=== PATIENT | female | born 1975 | race Caucasian/White ===

== ENCOUNTER 2017-12-22 20:07 | Emergency (ER) | payer OTHER ==
[2017-12-22 20:30] VITALS: PULSE 96; O2SAT 100
--- NOTE | 2017-12-22 20:32 | ERPHSYRPT ---
- History of Present Illness Time Seen by Provider: 12/22/17 20:30 Source: patient Exam Limitations: no limitations Patient Subjective Stated Complaint: pt states she thinks she has a uti. states she has been having urinary frequency, burning when urinating, pelvic pain, and rt lower back pain Triage Nursing Assessment: pt alert and oriented, answers questions approp. pt ambulatory with steady gait noted. respirations nonlabored with lungs cta. urine orange,- pt states she took azo at home. Physician History: pt states she thinks she has a uti. states she has been having urinary frequency , burning when urinating, pelvic pain, and right lower back pain Timing/Duration: today Severity: moderate Associated Symptoms: chills, fever Allergies/Adverse Reactions: amoxicillin Allergy (Verified 12/22/17 20:31) Hives sulfamethoxazole [From Bactrim] Allergy (Verified 12/22/17 20:31) Hives trimethoprim [From Bactrim] Allergy (Verified 12/22/17 20:31) Hives Home Medications: Cetirizine HCl [Zyrtec] 10 mg PO HS 12/22/17 [History] Pantoprazole Sodium [Protonix] 40 mg PO DAILY 12/22/17 [History] Propranolol HCl 10 mg [Inderal 10 MG] 10 mg PO BID 12/22/17 [History] Hx Tetanus, Diphtheria Vaccination/Date Given: No Hx Influenza Vaccination/Date Given: No Hx Pneumococcal Vaccination/Date Given: No Immunizations Up to Date: No - Review of Systems Constitutional: Chills Eyes: No Symptoms Ears, Nose, & Throat: No Symptoms Respiratory: No Symptoms Cardiac: No Symptoms Abdominal/Gastrointestinal: No Symptoms Genitourinary Symptoms: Dysuria, Frequency, Flank Pain Musculoskeletal: No Symptoms - Past Medical History Pertinent Past Medical History: Yes Neurological History: Migraines GI Medical History: GERD - Past Surgical History Past Surgical History: Yes Gastrointestinal: Cholecystectomy Female Surgical History: Tubal Ligation, Other Other Surgical History: lt tube and ovary removed, uterine ablation - Social History Smoking Status: Never smoker Exposure to second hand smoke: No Drug Use: none Patient Lives Alone: No - Female History Hx Last Menstrual Period: ablation Hx Now: No - Nursing Vital Signs Nursing Vital Signs: Initial Vital Signs Pulse Rate 96 H 12/22/17 20:16 Respiratory Rate 16 12/22/17 20:16 O2 Sat by Pulse Oximetry 100 12/22/17 20:16 Pain Scale Pain Intensity 8 - Physical Exam General Appearance: no apparent distress Eye Exam: PERRL/EOMI Ears, Nose, Throat Exam: normal ENT inspection Neck Exam: normal inspection Respiratory Exam: normal breath sounds Cardiovascular Exam: regular rate/rhythm Gastrointestinal/Abdomen Exam: soft Neurologic Exam: alert, oriented x 3 Skin Exam: normal color SpO2 Interpretation: normal SpO2: 100 Oxygen Delivery: Room Air - Course Nursing assessment & vital signs reviewed: Yes Ordered Tests: Active Orders 24 hr Category Date Time Status BMP Stat Lab 12/22/17 20:19 Ordered CBC W DIFF Stat Lab 12/22/17 20:30 Completed UA W/RFX UR CULTURE Stat Lab 12/22/17 20:25 Completed Medication Summary Generic Name Dose Route Start Last Admin Trade Name Freq PRN Reason Stop Dose Admin Ciprofloxacin 500 mg 12/22/17 22:00 Cipro 500 Mg PO 12/22/17 22:01 ONCE ONE Lab/Rad Data: Laboratory Result Diagrams 12/22/17 20:30 Laboratory Results 12/22/17 12/22/17 Range/Units 20:30 20:25 WBC 11.4 H (4.0-10.5) K/mm3 RBC 4.93 (4.1-5.4) M/mm3 Hgb 15.2 (12.0-16.0) gm/dl Hct 45.0 (35-47) % MCV 91.3 (78-100) fl MCH 30.8 (26-32) pg MCHC 33.8 (32-36) g/dl RDW 12.3 (11.5-14.0) % Plt Count 389 (150-450) K/mm3 MPV 9.6 H (6-9.5) fl Gran % 67.8 H (36.0-66.0) % Eos # (Auto) 0.12 (0-0.5) Absolute Lymphs (auto) 2.48 (1.0-4.6) Absolute Monos (auto) 1.03 (0.0-1.3) Lymphocytes % 21.8 L (24.0-44.0) % Monocytes % 9.1 (0.0-12.0) % Eosinophils % 1.1 (0.00-5.0) % Basophils % 0.2 (0.0-0.4) % Absolute Granulocytes 7.72 H (1.4-6.9) Basophils # 0.02 (0-0.4) Urine Color BONILLA (YELLOW) Urine Appearance CLEAR (CLEAR) Urine pH 6.0 (5-6) Ur Specific [place] 1.003 (1.005-1.025) Urine Protein 30 (Negative) Urine Ketones NEGATIVE (NEGATIVE) Urine Blood LARGE (0-5) Harsh/ul Urine Nitrite POSITIVE (NEGATIVE) Urine Bilirubin NEGATIVE (NEGATIVE) Urine Urobilinogen 4 (0-1) mg/dL Ur Leukocyte Esterase SMALL (NEGATIVE) Urine WBC (Auto) 51-100 (0-5) /HPF Urine RBC (Auto) 0-2 (0-2) /HPF U Epithel Cells (Auto) RARE (FEW) /HPF Urine Bacteria (Auto) FEW (NEGATIVE) /HPF Urine Mucus (Auto) SLIGHT (NEGATIVE) /HPF Urine Culture Reflexed YES (NO) Urine Glucose NEGATIVE (NEGATIVE) mg/dL - Progress Progress: unchanged Counseled pt/family regarding: lab results, diagnosis - Departure Time of Disposition: 20:52 Departure Disposition: Home Clinical Impression: Pyelonephritis Condition: Stable Critical Care Time: No Referrals: DAYANA UREÑA MD [Primary Care Provider] - Instructions: Urinary Tract Infection, Adult (DC) Additional Instructions: URINARY TRACT INFECTION 1. You will need to drink plenty of fluids in order to keep your urinary system flushed. These fluids should mainly consist of water and juices. 2. Take medications as directed. You need to completely finish any antiobiotic prescription given. 3. Try to avoid coffee, tea, alcohol, and seasoned foods as they may cause bladder irritation. 4. If signs and symptoms persist after 3-4 days, you will need to follow up with your family physician. 5. Female Patients: A. Avoid intercourse for 3-4 days. B. Empty bladder before and after intercourse to reduce risk of re- infection. C. After emptying bladder, wipe from front to back to reduce the risk of re- infection. SYED VASQUEZ was seen on 12/22/17 n the Emergency Room. At that time you were treated for an emergent condition, during your visit Laboratory, Radiology and/or other procedures may have been ordered. It is very important that you follow-up with your Primary Care Physician DAYANA UREÑA within the next 24-48 hours to review your Emergency Room visit and the final results of testing that was ordered. Some test results such as Urine Cultures, Blood Cultures, and other cultures if ordered will not be finalized for 24-48 hours. If you do not have a Primary Care Provider please call the medical records department at [phone] to obtain a copy of your results or you may sign into our patient portal to obtain these results by visiting us @ [email or web address] and completing the following steps: 1. Click on the Patient Portal link 2. Click the Patient Self Enrollment Link to complete the enrollment form and entering your 3. Once the enrollment form is completed you will receive an email with a temporary ID and password at the email address you provided. 4. Next choose a user name and password. Your user name must be at least 4 characters long and your password must be at least 4 characters long. 5. Choose a security question from the list and provide your answer to the question. If you already have signed into the Health Portal you may access your Health Care Information 17/10 by the following steps: 1. Login to our website @ [email or web address] 2. Enter your original user name and password. FAQS The [facility] Health Portal is an online tool that contains your Lab Results, Radiology Reports, Visit History, Discharge Instructions and Health Summary Lab and Radiology Results will not be available for 72 hours on the portal. The Portal is a secure site, passwords are encryted and URLs are re-written so they cannot be copied and pasted. You and authorized family members are the only ones who can access your Portal. Also there is a timeout feature that protects your information if you leave the Portal page open. If you have technical difficulty please use the Contact Us link on the page this will allow you to submit any questions you have regarding the Portal or you may contact the Medical Record Department at [phone]. Prescriptions: Ciprofloxacin [Cipro 500 MG] 500 mg PO BID #20 tablet
[2017-12-22 20:36] LABS: BASOPHIL % 0.2 % (0.0-0.4); Basophil (Absolute #) 0.02 (0-0.4); Eosinophil % 1.1 % (0.00-5.0); Eosinophil (Absolute #) 0.12 (0-0.5); Granulocyte Absolute (ANC) 7.72 (1.4-6.9); Granulocytes % 67.8 % (36.0-66.0); Hemoglobin 15.2 gm/dl (12.0-16.0); Lymphocyte (Absolute #) 2.48 (1.0-4.6); Lymphocytes % 21.8 % (24.0-44.0); Mean Cell Volume 91.3 fl (78-100); Mean Corpuscular Hemoglobin 30.8 pg (26-32); Mean Corpuscular Hgb Concent. 33.8 g/dl (32-36); Mean Platelet Volume 9.6 fl (6-9.5); Monocyte (Absolute #) 1.03 (0.0-1.3); Monocytes % 9.1 % (0.0-12.0); Platelet Count 389 K/mm3 (150-450); Red Blood Count 4.93 M/mm3 (4.1-5.4); Red Cell Distribution Width 12.3 % (11.5-14.0); White Blood Count 11.4 K/mm3 (4.0-10.5)
[2017-12-22 20:47] LABS: Appearance CLEAR (CLEAR); Bilirubin NEGATIVE (NEGATIVE); Blood LARGE Ery/ul (0-5); Glucose NEGATIVE (NEGATIVE); Ketones NEGATIVE (NEGATIVE); Leukocyte Esterase SMALL (NEGATIVE); Nitrite POSITIVE (NEGATIVE); Protein,Urine Dip 30 (Negative); Specific Gravity 1.003 (1.005-1.025); Urobilinogen 4 mg/dL (0-1)
[2017-12-22] MEDS ORDERED: Cipro 500 MG ONE (20:53)
[2017-12-22 20:58] LABS: ANION GAP 14.1 MEQ/L (5-15); BLOOD UREA NITROGEN 10 mg/dL (7-17); CHLORIDE 103 mmol/L (98-107); Calcium 9.4 mg/dL (8.4-10.2); Carbon Dioxide 26 mmol/L (22-30); Creatinine 1 0.97 mg/dL (0.52-1.04); Glucose 105 mg/dL (74-106); Potassium 4.2 mmol/L (3.5-5.1); SODIUM 139 mmol/L (137-145)
[2017-12-22] MEDS ORDERED: Cipro 500 MG PO ONE (22:00)
== END 2017-12-22 20:57 | disposition home or self-care (01) ==
LOC: ED 20:07
DX: N12 Tubulo-interstitial nephritis, not specified as acute or chronic (principal); Z79.899 Other long term (current) drug therapy
CPT/HCPCS: 36415; 80048; 81001; 85025; 87077; 87086; 87186; 99283; A9270-GY

== ENCOUNTER 2022-05-23 14:17 | Observation (INO) | payer OTHER ==
[2022-05-23] MEDS ORDERED: GlucaGen 1 MG IV ONE (14:24)
[2022-05-23] MEDS ORDERED: GlucaGen 1 MG ONE (14:25)
[2022-05-23] MEDS ORDERED: Xylocaine-Mpf 2% 5 Ml Vial ONE (14:33)
[2022-05-23] MEDS ORDERED: DIPRIVAN 200 MG/20 ML IV ONE (14:33)
[2022-05-23] MEDS ORDERED: Quelicin Fliptop 200 MG/10 ML ONE (14:34)
[2022-05-23] MEDS ORDERED: Decadron 4 MG INJ ONE (14:35)
[2022-05-23] MEDS ORDERED: Zofran 4 MG/2 ML VIAL ONE ×2 (14:35→16:44)
[2022-05-23] MEDS ORDERED: SUBLIMAZE 100 MCG/2 ML ONE ×3 (14:36→15:04)
--- NOTE | 2022-05-23 14:38 | ERPHSYRPT ---
- History of Present Illness Historian: patient Exam Limitations: no limitations Patient Subjective Stated Complaint: Pt states "I was eating chicken and I got a piece of meat stuck in my throat." Triage Nursing Assessment: Pt presented alert and oriented X 3, skin pwd. Pt ambulates with an upright steady gait, pt spitting up saliva, occasional cough and gag. 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 Pt unable to swallow liquids or food. She denies h/o dysphagia/odynophagia/GERD. Timing/Duration: today Activities at Onset: other (Eating) Quality: other (Sensation of food in esophagus) Pain Radiation: no radiation Severity of Pain-Max: moderate Severity of Pain-Current: moderate Modifying Factors: Improves With: nothing Associated Symptoms: denies symptoms Previous symptoms: no prior history Allergies/Adverse Reactions: amoxicillin Allergy (Verified 12/22/17 20:31) Hives sulfamethoxazole [From Bactrim] Allergy (Verified 12/22/17 20:31) Hives trimethoprim [From Bactrim] Allergy (Verified 12/22/17 20:31) Hives egg Adverse Reaction (Intermediate, Verified 05/23/22 14:25) sinus infection Home Medications: Cetirizine HCl [Zyrtec] 10 mg PO HS 12/22/17 [History] Pantoprazole Sodium [Protonix] 40 mg PO DAILY 12/22/17 [History] Propranolol HCl 10 mg [Inderal 10 MG] 10 mg PO BID 12/22/17 [History] Losartan/Hydrochlorothiazide [Losartan-Hctz 100-25 mg Tab] 1 each PO DAILY 05/23/22 [History] Potassium Chloride Tab* [Klor Con] 20 meq PO DAILY 05/23/22 [History] Hx Tetanus, Diphtheria Vaccination/Date Given: No Hx Influenza Vaccination/Date Given: No Hx Pneumococcal Vaccination/Date Given: No Immunizations Up to Date: Yes Travel Risk - International Travel Have you traveled outside of the country in past 3 weeks: No - Coronavirus Screening Are you exhibiting any of the following symptoms?: No Close contact with a COVID-19 positive Pt in past 14-21 Days: No - Vaccine Status Have you recieved a Covid-19 vaccination: Yes [employer]: Moderna - Vaccination Dates Date of 2cond Vaccination (if applicable): 2020 - Review of Systems Constitutional: No Symptoms Eyes: No Symptoms Ears, Nose, & Throat: No Symptoms Respiratory: No Symptoms Cardiac: No Symptoms Abdominal/Gastrointestinal: No Symptoms, Dysphagia Genitourinary Symptoms: No Symptoms Musculoskeletal: No Symptoms Skin: No Symptoms Neurological: No Symptoms Psychological: No Symptoms Endocrine: No Symptoms Hematologic/Lymphatic: No Symptoms Immunological/Allergic: No Symptoms - Past Medical History Pertinent Past Medical History: Yes Neurological History: Migraines GI Medical History: GERD - Past Surgical History Past Surgical History: Yes Gastrointestinal: Cholecystectomy Female Surgical History: Tubal Ligation, Other Other Surgical History: lt tube and ovary removed, uterine ablation - Social History Smoking Status: Never smoker Exposure to second hand smoke: No Drug Use: none Patient Lives Alone: No - Female History Hx Last Menstrual Period: 05/23/2022 Hx Now: No - Nursing Vital Signs Nursing Vital Signs: Initial Vital Signs Temperature 97.2 F 05/23/22 14:18 Pulse Rate 110 H 05/23/22 14:18 Respiratory Rate 22 05/23/22 14:18 Blood Pressure 148/91 05/23/22 14:18 O2 Sat by Pulse Oximetry 96 05/23/22 14:18 Pain Scale Pain Intensity 5 Tachy/hypertensive - Physical Exam General Appearance: no apparent distress Eye Exam: PERRL/EOMI, eyes nml inspection Ears, Nose, Throat Exam: normal ENT inspection Neck Exam: normal inspection, non-tender, supple, full range of motion, No meningismus, No mass, No Brudzinski, No Kernig's Respiratory Exam: normal breath sounds, lungs clear, airway intact Cardiovascular Exam: tachycardia, capillary refill <2 sec, No murmur Gastrointestinal/Abdomen Exam: soft, normal bowel sounds, No tenderness Back Exam: normal inspection, normal range of motion Extremity Exam: normal inspection, normal range of motion Neurologic Exam: alert, oriented x 3, cooperative, cheese cutter II-XII nml as tested, normal mood/affect, nml cerebellar function, nml station & gait, sensation nml, No motor deficits, No sensory deficit Skin Exam: normal color, warm, dry Lymphatic Exam: adenopathy SpO2: 96 O2 Delivery: Room Air - Course Nursing assessment & vital signs reviewed: Yes Ordered Tests: Active Orders 24 hr Category Date Time Status HCG,QUALITATIVE URINE Stat Lab 05/23/22 14:45 Completed Medication Summary Discontinued Medications Generic Name Dose Route Start Last Admin Trade Name Janina PRN Reason Stop Dose Admin Dexamethasone Sodium Phosphate Confirm 05/23/22 14:35 Dexamethasone Sod Phosphate 4 Mg/Ml Ml Administered 05/23/22 14:36 Dose 8 mg .ROUTE .STK-MED ONE Fentanyl Citrate Confirm 05/23/22 14:36 Fentanyl Citrate 100 Mcg/2 Ml* Vial Administered 05/23/22 14:37 Dose 100 mcg .ROUTE .STK-MED ONE Fentanyl Citrate Confirm 05/23/22 15:01 Fentanyl Citrate 100 Mcg/2 Ml* Vial Administered 05/23/22 15:02 Dose 100 mcg .ROUTE .STK-MED ONE Fentanyl Citrate Confirm 05/23/22 15:04 Fentanyl Citrate 100 Mcg/2 Ml* Vial Administered 05/23/22 15:05 Dose 100 mcg .ROUTE .STK-MED ONE Glucagon 1 mg 05/23/22 14:24 05/23/22 14:26 Glucagon 1 Mg/Vial Vial IV 05/23/22 14:25 1 mg STAT ONE Administration Glucagon Confirm 05/23/22 14:25 Glucagon 1 Mg/Vial Vial Administered 05/23/22 14:26 Dose 1 mg .ROUTE .STK-MED ONE Lactated Ringer's Confirm 05/23/22 14:39 Lactated Ringers Administered 05/23/22 14:40 Dose 1,000 mls @ ud IV .STK-MED ONE Lidocaine HCl Confirm 05/23/22 14:33 Lidocaine - Mpf 2% 5 Ml Vial Administered 05/23/22 14:34 Dose 5 ml .ROUTE .STK-MED ONE Midazolam HCl Confirm 05/23/22 14:52 Midazolam Hcl 2 Mg/2 Ml Vial Administered 05/23/22 14:53 Dose 2 mg .ROUTE .STK-MED ONE Ondansetron HCl Confirm 05/23/22 14:35 Ondansetron Hcl 4 Mg/2 Ml Vial Administered 05/23/22 14:36 Dose 4 mg .ROUTE .STK-MED ONE Phenylephrine HCl Confirm 05/23/22 15:13 Phenylephrine 10 Mg/Ml Vial Administered 05/23/22 15:14 Dose 10 mg .ROUTE .STK-MED ONE Propofol Confirm 05/23/22 14:33 Propofol 10 Mg/Ml 20ml Vial Administered 05/23/22 14:34 Dose 200 mg IV .STK-MED ONE Succinylcholine Chloride Confirm 05/23/22 14:34 Succinylcholine Chloride 200mg/10 Ml Vial Administered 05/23/22 14:35 Dose 140 mg .ROUTE .STK-MED ONE Lab/Rad Data: Laboratory Results 05/23/22 Range/Units 14:45 Urine HCG, Qual NEGATIVE (Negative) - Progress Progress Note: 05/23/22 14:39 Nursing note and vital signs reviewed No food or housing insecurities noted Dr. Carr called immediately and consulted on pt in ER Dr. Carr to take pt to surgery for EGD 05/23/22 14:42 1mg IV Glucagon wo improvement Discussed with : Batsheva Counseled pt/family regarding: diagnosis, need for follow-up - Departure Departure Disposition: Release to OR/SDC Clinical Impression: Food impaction of esophagus Condition: Stable Critical Care Time: No [facility] - Follow up/PCP as directed
[2022-05-23] MEDS ORDERED: Lactated Ringers 1,000 ML IV ONE (14:39)
[2022-05-23] MEDS ORDERED: Versed 2 MG/2 ML Injection ONE (14:52)
[2022-05-23] MEDS ORDERED: PHENYLEPHRINE HCL ONE (15:13)
[2022-05-23] MEDS ORDERED: DUONEB 0.5-3 MG/3 ml Neb IH ONE (15:56)
--- NOTE | 2022-05-23 16:23 | XRAY ---
Indication: Aspiration. Status post Covid 19. Comparison: None Portable chest moderately underinflated and clear. Heart not enlarged. Bony thorax intact. Impression: Nonacute underinflated chest.
[2022-05-23] MEDS ORDERED: PIPERACILLIN/TAZOBACTAM 3.375 GM in Sodium Chloride 100ML MINI-BAG PLUS 100 ML IV ONE (16:56)
[2022-05-23] MEDS ORDERED: Zofran 4 MG/2 ML VIAL IV PRN (17:04)
[2022-05-23] MEDS ORDERED: TYLENOL 325 MG PO PRN (17:06)
[2022-05-23] MEDS ORDERED: MORPHINE SULFATE 4 MG INJ IV PRN (17:06)
--- NOTE | 2022-05-23 17:10 | PCM.HP ---
History of Present Illness - Chief Complaint Chief Complaint: aspiration History of Present Illness: is a 47 year old female who was taken to OR by surgery for impacted food bolus, she had vomiting and aspiration during the procedure so is being admitted for observation, she was not coughing nor did she complain of shortness of breath when I saw her in the recovery room, initial chest xray is read as negative. she has a history of hypertension but no chronic lung disease, stable on minimal oxygen support in recovery as well. - Review of Systems Constitutional: No Symptoms, No Fever Respiratory: No Cough Cardiac: No Chest Pain, No Edema, No Syncope Abdominal/Gastrointestinal: No Abdominal Pain, No Nausea, No Vomiting, No Diarrhea Skin: No Rash All Other Systems: Reviewed and Negative Medications & Allergies Home Medications: Home Medication List Cetirizine HCl [Zyrtec] 10 mg PO HS 12/22/17 [History Confirmed 05/23/22] Pantoprazole Sodium [Protonix] 40 mg PO DAILY 12/22/17 [History Confirmed 05/23/22] Propranolol HCl 10 mg [Inderal 10 MG] 10 mg PO BID 12/22/17 [History Confirmed 05/23/22] Losartan/Hydrochlorothiazide [Losartan-Hctz 100-25 mg Tab] 1 each PO DAILY 05/23/22 [History Confirmed 05/23/22] Potassium Chloride Tab* [Klor Con] 20 meq PO DAILY 05/23/22 [History Confirmed 05/23/22] Allergies/Adverse Reactions: Allergies Allergy/AdvReac Type Severity Reaction Status Date / Time amoxicillin Allergy Hives Verified 12/22/17 20:31 sulfamethoxazole Allergy Hives Verified 12/22/17 20:31 [From Bactrim] trimethoprim [From Bactrim] Allergy Hives Verified 12/22/17 20:31 egg AdvReac Intermediate sinus Verified 05/23/22 14:25 infection - Past Medical History Past Medical History: Yes Neurological History: Migraines GI Medical History: GERD - Female History Hx Last Menstrual Period: 05/23/2022 Are you now?: No - Past Surgical History Past Surgical History: Yes GI Surgical History: Cholecystectomy Female Surgical History: Tubal Ligation, Other Other Surgical History: lt tube and ovary removed, uterine ablation - Social History Smoking Status: Never smoker Exposure to second hand smoke: No Alcohol: None Drug Use: none - Physical Exam Vital Signs: Vital Signs - 24 hr Temp Pulse Resp BP Pulse Ox 05/23/22 16:26 91 H 22 95 05/23/22 15:19 96 05/23/22 14:29 97.2 F 110 H 22 148/91 96 05/23/22 14:18 97.2 F 110 H 22 148/91 96 General Appearance: no apparent distress Neurologic Exam: alert, oriented x 3 Respiratory Exam: normal breath sounds, lungs clear, No respiratory distress Cardiovascular Exam: regular rate/rhythm, normal heart sounds, normal peripheral pulses Gastrointestinal/Abdomen Exam: soft, normal bowel sounds, No tenderness, No mass Extremity Exam: normal inspection, normal range of motion, pelvis stable Skin Exam: normal color, warm, dry, No rash Results - Labs Lab/Micro Results: Lab Results-Last 24 Hours 05/23/22 Range/Units 14:45 Urine HCG, Qual NEGATIVE (Negative) - Radiology Impressions Radiology Exams & Impressions: Radiology Procedures Category Date Time Status CHEST 1 VIEW (PORTABLE) Routine Exams 05/23/22 16:15 Completed CHEST 1 VIEW (PORTABLE) Routine Exams 05/24/22 07:00 Ordered Assessment/Plan (1) Aspiration into respiratory tract Current Visit: Yes Status: Acute Assessment & Plan: plan to continue zosyn, nebs and repeat chest xray in the morning. note she was given zosyn in recovery without incident so it will be continued since tolerated in spite of documented amoxicillin allergy. Code(s): T17.908A - UNSP FB IN RESP TRACT, PART UNSP CAUSING OTH INJURY, INIT (2) Food impaction of esophagus Current Visit: Yes Status: Acute Assessment & Plan: impaction cleared during egd with surgery. Code(s): T18.128A - FOOD IN ESOPHAGUS CAUSING OTHER INJURY, INITIAL ENCOUNTER
[2022-05-23] MEDS ORDERED: MEDICATION ON HOLD MC SCH (17:30)
[2022-05-23] MEDS: Klor Con PO SCH (17:40)
[2022-05-23] MEDS: hydroDIURIL 25 MG PO SCH (18:15)
[2022-05-23] MEDS: Cozaar 50 MG PO SCH (18:15)
[2022-05-23] MEDS: Protonix 40MG Tablet PO SCH (18:16)
[2022-05-23] MEDS: DUONEB 0.5-3 MG/3 ml Neb IH SCH (18:27)
[2022-05-23] MEDS: Inderal PO SCH (21:02)
[2022-05-23] MEDS: CLARITIN 10 MG PO SCH (21:02)
[2022-05-23] MEDS ORDERED: PROPRANOLOL HCL 10 MG PO SCH (22:00)
[2022-05-23] MEDS ORDERED: NON-FORMULARY ITEM (Cetirizine Hcl [Zyrtec] 10 MG Tablet) PO SCH (22:00)
[2022-05-23] MEDS: PIPERACILLIN/TAZOBACTAM 3.375 GM in Sodium Chloride 100ML MINI-BAG PLUS 100 ML IV SCH (23:05)
[2022-05-23] MEDS: Sodium Chloride 0.9% W/ 20 mEq KCl/LITER 1,000 ML IV SCH (23:05)
[2022-05-24] MEDS: DUONEB 0.5-3 MG/3 ml Neb IH SCH ×4 (00:42→18:21)
[2022-05-24] MEDS: PIPERACILLIN/TAZOBACTAM 3.375 GM in Sodium Chloride 100ML MINI-BAG PLUS 100 ML IV SCH ×4 (05:08→23:35)
[2022-05-24 05:17] LABS: Absolute Neutrophil Ct (ANC) 5.24 x10^3/uL (1.4-6.9); BASOPHIL % 0.3 % (0.0-0.4); Basophil (Absolute #) 0.02 x10^3/uL (0-0.4); Eosinophil % 0.9 % (0.00-5.0); Eosinophil (Absolute #) 0.07 x10^3/uL (0-0.5); Hematocrit 37.4 % (35-47); Hemoglobin 12.3 g/dL (12.0-16.0); IMMATURE GRAN # 0.01 x10^3u/L (0.00-0.03); IMMATURE GRAN % 0.1 % (0.00-0.4); Lymphocyte (Absolute #) 1.99 x10^3/uL (1.0-4.6); Lymphocytes % 25.5 % (24.0-44.0); Mean Corpuscular Hemoglobin 30.6 pg (26-32); Mean Corpuscular Hgb Concent. 32.9 g/dL (32-36); Mean Platelet Volume 9.5 fL (7.5-11.0); Monocyte (Absolute #) 0.47 x10^3/uL (0.0-1.3); Neutrophil % 67.2 % (36.0-66.0); Platelet Count 334 x10^3/uL (150-450); Red Blood Count 4.02 x10^6/uL (4.1-5.4); Red Cell Distribution Width 12.5 % (11.5-14.0); White Blood Count 7.8 x10^3/uL (4.0-10.5)
[2022-05-24 06:08] LABS: ALBUMIN 3.3 g/dL (3.5-5.0); ALKALINE PHOSPHATASE 55 U/L (38-126); ANION GAP 10.7 MEQ/L (5-15); BLOOD UREA NITROGEN 12 mg/dL (7-17); CHLORIDE 105 mmol/L (98-107); Carbon Dioxide 25 mmol/L (22-30); Creatinine 1 0.87 mg/dL (0.52-1.04); EST GLOMERULAR FILTRATION RATE > 60.0 ML/MIN; Glucose 91 mg/dL (74-106); Potassium 3.3 mmol/L (3.5-5.1); SGOT/AST 29 U/L (14-36); SGPT/ALT 25 U/L (0-35); SODIUM 137 mmol/L (137-145)
--- NOTE | 2022-05-24 08:32 | XRAY ---
Indication: Aspiration. Comparison: One day earlier Portable chest better inflated and remains clear. Heart not enlarged. No new/acute findings.
--- NOTE | 2022-05-24 08:40 | PCM.NOTE ---
Date and Time: 05/24/22838 Subjective Assessment: patient does have some cough productive of blood tinged sputum, no other complaints. tolerating clears without problem, currently on room air Objective Exam General Appearance: no apparent distress, obese Respiratory Exam: rhonchi (rt lung base) Cardiovascular Exam: regular rate/rhythm, normal heart sounds Gastrointestinal/Abdomen Exam: soft, No tenderness, No mass Extremity Exam: normal inspection, normal range of motion OBJECTIVE DATA Vital Signs: Vital Signs - 24 hr Temp Pulse Resp BP Pulse Ox 05/24/22 07:06 102 H 16 97 05/24/22 06:51 97.7 F 73 16 108/58 92 L 05/24/22 05:13 101/63 94 L 05/24/22 04:00 97.7 F 92 H 16 87/48 05/24/22 00:42 91 H 16 96 05/24/22 00:00 98.2 F 91 H 16 94/54 93 L 05/23/22 20:35 85 116/72 95 05/23/22 19:55 93 H 16 107/60 98 05/23/22 19:32 94 L 05/23/22 19:00 73 18 98 05/23/22 18:55 83 110/71 96 05/23/22 18:30 75 16 99 05/23/22 18:25 84 16 106/53 96 05/23/22 17:54 97.6 F 68 15 122/63 99 05/23/22 17:25 97.7 F 75 15 107/76 96 05/23/22 17:07 97.7 F 77 14 121/69 96 05/23/22 17:06 97.7 F 77 14 121/69 96 05/23/22 16:58 97.7 F 77 14 121/69 96 05/23/22 16:26 91 H 22 95 05/23/22 15:19 96 05/23/22 14:29 97.2 F 110 H 22 148/91 96 05/23/22 14:18 97.2 F 110 H 22 148/91 96 Pain Assessment - Last Documented Pain Intensity 2 Pain Scale Used 0-10 Pain Scale Intake and Output: Intake & Output 05/21/22 05/22/22 05/23/22 05/24/22 11:59 11:59 11:59 11:59 Intake Total 2252 Output Total 1400 Balance 852 Weight 82.1 kg Lab Results: Lab Results-Last 24 Hours 05/23/22 05/24/22 05/24/22 Range/Units 14:45 04:00 05:24 WBC 7.8 (4.0-10.5) x10^3/uL RBC 4.02 L (4.1-5.4) x10^6/uL Hgb 12.3 (12.0-16.0) g/dL Hct 37.4 (35-47) % MCV 93.0 (78-100) fL MCH 30.6 (26-32) pg MCHC 32.9 (32-36) g/dL RDW 12.5 (11.5-14.0) % Plt Count 334 (150-450) x10^3/uL MPV 9.5 (7.5-11.0) fL Gran % 67.2 H (36.0-66.0) % Immature Gran % (Auto) 0.1 (0.00-0.4) % Nucleat RBC Rel Count 0.0 (0.00-0.1) % Eos # (Auto) 0.07 (0-0.5) x10^3/uL Immature Gran # (Auto) 0.01 (0.00-0.03) x10^3u/L Absolute Lymphs (auto) 1.99 (1.0-4.6) x10^3/uL Absolute Monos (auto) 0.47 (0.0-1.3) x10^3/uL Absolute Nucleated RBC 0.00 (0.00-0.01) x10^3u/L Lymphocytes % 25.5 (24.0-44.0) % Monocytes % 6.0 (0.0-12.0) % Eosinophils % 0.9 (0.00-5.0) % Basophils % 0.3 (0.0-0.4) % Absolute Granulocytes 5.24 (1.4-6.9) x10^3/uL Basophils # 0.02 (0-0.4) x10^3/uL Sodium 137 (137-145) mmol/L Potassium 3.3 L (3.5-5.1) mmol/L Chloride 105 (98-107) mmol/L Carbon Dioxide 25 (22-30) mmol/L Anion Gap 10.7 (5-15) MEQ/L BUN 12 (7-17) mg/dL Creatinine 0.87 (0.52-1.04) mg/dL Estimated GFR > 60.0 ML/MIN Glucose 91 (74-106) mg/dL Calcium 8.0 L (8.4-10.2) mg/dL Total Bilirubin 0.60 (0.2-1.3) mg/dL AST 29 (14-36) U/L ALT 25 (0-35) U/L Alkaline Phosphatase 55 (38-126) U/L Serum Total Protein 6.0 L (6.3-8.2) g/dL Albumin 3.3 L (3.5-5.0) g/dL Urine HCG, Qual NEGATIVE (Negative) Radiology Exams: Radiology Procedures Category Date Time Status CHEST 1 VIEW (PORTABLE) Routine Exams 05/23/22 16:15 Completed CHEST 1 VIEW (PORTABLE) Routine Exams 05/24/22 07:00 Completed Assessment/Plan (1) Aspiration into respiratory tract Current Visit: Yes Status: Acute Assessment & Plan: xray looks good but exam consistent with early aspiration, continue zosyn, advance to soft diet today and repeat chest xray tomorrow. possible d/c tomorrow Code(s): T17.908A - UNSP FB IN RESP TRACT, PART UNSP CAUSING OTH INJURY, INIT (2) Food impaction of esophagus Current Visit: Yes Status: Acute Code(s): T18.128A - FOOD IN ESOPHAGUS CAUSING OTHER INJURY, INITIAL ENCOUNTER
--- NOTE | 2022-05-24 09:52 | CONS ---
CONSULT DATE: 05/23/2022 HISTORY: The patient was eating chicken or chicken wings and felt like it got stuck and was unable to swallow, keep anything down, everything comes back up. She feels like it is still a retained food bolus. She denies any prior upper endoscopy. PAST MEDICAL HISTORY: She has allergies and hypertension. PAST SURGICAL HISTORY: Tonsillectomy. Cholecystectomy. Tubal ligation. Left tube and ovary removed. HOME MEDICATIONS: Propranolol, losartan/hydrochlorothiazide, Zyrtec. Protonix. ALLERGIES: AMOXICILLIN. BACTRIM. EGG. FAMILY HISTORY: Her mother had some esophageal swallowing problems with food boluses, it sounds like. SOCIAL HISTORY: No smoking or alcohol abuse. REVIEW OF SYSTEMS: Fourteen systems reviewed per admission assessment. PHYSICAL EXAMINATION: GENERAL: Slightly uncomfortable otherwise no acute distress. HEENT: Sclera nonicteric. She is wearing glasses. Head normocephalic and atraumatic. NECK: No JVD. CHEST: Equal excursion. CVS: Regular rhythm and pulse. ABDOMEN: Soft. No peritoneal signs. EXTREMITIES: No significant edema. NEURO: Alert, moving extremities grossly symmetrically. PSYCH: Appropriate mood and affect. IMPRESSION: Question retained food bolus. Eating chicken earlier and does not feel like it has gone down. Will consider EGD possible food bolus dislodging or removal. General risk of bleeding or infection. Risk of whatever she swallowed to avoid damage of esophagus or perforation or by removing it small risk of delayed perforation. Risk of aspiration. She understands if there is any mass in there may consider biopsy. Otherwise general risk of bleeding, infection, risk of perforation, risk of sedation but not limited to. Consent is obtained, will proceed.
[2022-05-24] MEDS ORDERED: NON-FORMULARY ITEM (Losartan/Hydrochlorothiazide [Losartan-Hctz 100-25 Mg Tab] 1 EACH Tabl PO SCH (10:00)
[2022-05-24] MEDS: Sodium Chloride 0.9% W/ 20 mEq KCl/LITER 1,000 ML IV SCH ×3 (10:26→21:18)
[2022-05-24] MEDS: hydroDIURIL 25 MG PO SCH (10:29)
[2022-05-24] MEDS: Inderal PO SCH ×2 (10:29→21:18)
[2022-05-24] MEDS: Klor Con PO SCH (10:30)
[2022-05-24] MEDS: Protonix 40MG Tablet PO SCH (10:30)
[2022-05-24] MEDS: Cozaar 50 MG PO SCH (10:31)
--- NOTE | 2022-05-24 11:32 | OP ---
SURGERY DATE/TIME: 05/23/2022 1452 PREOPERATIVE DIAGNOSIS: Dysphagia, suspected retained food bolus. POSTOPERATIVE DIAGNOSIS: Multiple particles of chicken/retained food bolus complex pieces. PROCEDURE: EGD with a combination of removal and dislodging from stomach multiple complex retained/food bolus particles. SURGEON: Dr. Terrell Desai. ANESTHESIA: General. ESTIMATED BLOOD LOSS: Minimal. INDICATIONS: As noted above. Risks and benefits explained in detail and not limited to and consent obtained. DESCRIPTION OF PROCEDURE AND FINDINGS: The patient is taken to the operating room. Anesthesia wanted to put her under general anesthetic rather than conscious sedation. Bite block positioned. At this time the scope is passed down. She had multiple food particles in her esophagus. The scope was able to be pushed down some of the bigger pieces there gently down into the stomach. She had a lot of food in her stomach. The scope is pulled back and a combination of removing some out the oropharynx and pushing the remainder down into the stomach this took quite some time given her complex particles was slowly and carefully accomplished. Trying to elevate the head of the bed up to allow gravity to keep her liquid away from the gastroesophageal junction area so that the particles would not be dragged back up. At this point there is no residual or any significant sized particles in the esophagus. The esophagus had a little bit of spasm but there was no evidence of any mass that warranted biopsy at this time. Given her acute inflammation it was felt that she did not warrant any dilatation at this point. I will see her back in the office in a week or two and consider if she continues to have some dysphagia down the road will do elective dilatation down the road if necessary. The scope had been passed into the third portion of the duodenum. Third, second and first portions of duodenum grossly unremarkable. Back in the stomach had some mild gastric erythema but no gross ulcers. The scope was carefully withdrawn. The patient tolerated the procedure as well as possible. There were no immediate complications. I will see her back in the office in a week or two.
[2022-05-24] MEDS ORDERED: TYLENOL 325 MG PO PRN (12:26)
[2022-05-24] MEDS ORDERED: CEPACOL SORE THROAT LOZENGE PO PRN (13:06)
[2022-05-24] MEDS: CLARITIN 10 MG PO SCH (21:18)
[2022-05-25] MEDS: DUONEB 0.5-3 MG/3 ml Neb IH SCH ×2 (01:01→07:43)
[2022-05-25 04:49] LABS: Hematocrit 36.3 % (35-47); Hemoglobin 11.9 g/dL (12.0-16.0); Mean Cell Volume 94.3 fL (78-100); Mean Corpuscular Hemoglobin 30.9 pg (26-32); Red Blood Count 3.85 x10^6/uL (4.1-5.4); White Blood Count 4.7 x10^3/uL (4.0-10.5)
[2022-05-25 04:50] LABS: Absolute Neutrophil Ct (ANC) 2.63 x10^3/uL (1.4-6.9); BASOPHIL % 0.4 % (0.0-0.4); Basophil (Absolute #) 0.02 x10^3/uL (0-0.4); Eosinophil % 2.8 % (0.00-5.0); Eosinophil (Absolute #) 0.13 x10^3/uL (0-0.5); IMMATURE GRAN # 0.01 x10^3u/L (0.00-0.03); IMMATURE GRAN % 0.2 % (0.00-0.4); Lymphocyte (Absolute #) 1.56 x10^3/uL (1.0-4.6); Lymphocytes % 33.5 % (24.0-44.0); Mean Corpuscular Hgb Concent. 32.8 g/dL (32-36); Mean Platelet Volume 9.3 fL (7.5-11.0); Monocyte (Absolute #) 0.31 x10^3/uL (0.0-1.3); Monocytes % 6.7 % (0.0-12.0); Neutrophil % 56.4 % (36.0-66.0); Platelet Count 307 x10^3/uL (150-450); Red Cell Distribution Width 12.7 % (11.5-14.0)
[2022-05-25 05:19] LABS: ANION GAP 11.6 MEQ/L (5-15); BLOOD UREA NITROGEN 5 mg/dL (7-17); CHLORIDE 109 mmol/L (98-107); Calcium 7.8 mg/dL (8.4-10.2); Carbon Dioxide 22 mmol/L (22-30); Creatinine 1 0.84 mg/dL (0.52-1.04); EST GLOMERULAR FILTRATION RATE > 60.0 ML/MIN; Glucose 89 mg/dL (74-106); Potassium 3.8 mmol/L (3.5-5.1); SODIUM 139 mmol/L (137-145)
[2022-05-25] MEDS: PIPERACILLIN/TAZOBACTAM 3.375 GM in Sodium Chloride 100ML MINI-BAG PLUS 100 ML IV SCH (05:41)
[2022-05-25 06:48] VITALS: BP 118/62
[2022-05-25] MEDS: Sodium Chloride 0.9% W/ 20 mEq KCl/LITER 1,000 ML IV SCH (07:06)
[2022-05-25 07:49] VITALS: PULSE 79; O2SAT 98
--- NOTE | 2022-05-25 08:47 | XRAY ---
Indication: Follow-up aspiration. Comparison: One day earlier Portable chest again demonstrates normal heart and lungs. No new/acute findings.
--- NOTE | 2022-05-25 09:19 | PCM.DS ---
Discharge Summary Date of Admission: 05/23/22 16:55 Admitting Physician: DAYANA UREÑA Primary Care Provider: ZEB SCHULER Allergies Allergies amoxicillin Allergy (Verified 12/22/17 20:31) Hives sulfamethoxazole [From Bactrim] Allergy (Verified 12/22/17 20:31) Hives trimethoprim [From Bactrim] Allergy (Verified 12/22/17 20:31) Hives egg Adverse Reaction (Intermediate, Verified 05/23/22 14:25) sinus infection Hospital Summary - Hospital Course Hospital Course: patient admitted with aspiration following egd for impacted food bolus, she is tolerating a soft diet. cough is improved and no hemoptysis. afebrile, wbc normal and chest xray remains clear. - Vitals & Intake/Output Vital Signs: Vital Signs Temperature 97.3 F 05/25/22 06:48 Pulse Rate 79 05/25/22 07:46 Respiratory Rate 16 05/25/22 07:46 Blood Pressure 118/62 05/25/22 06:48 O2 Sat by Pulse Oximetry 98 05/25/22 07:46 Intake & Output: Intake & Output 05/22/22 05/23/22 05/24/22 05/25/22 11:59 11:59 11:59 11:59 Intake Total 2732 4309 Output Total 1400 2600 Balance 1332 1709 Weight 82.1 kg - Lab Result Diagrams: 05/25/22 04:51 05/25/22 04:51 Lab Results-Last 24 Hrs: Lab Results-Last 24 Hours 05/25/22 05/25/22 Range/Units 04:51 04:51 WBC 4.7 (4.0-10.5) x10^3/uL RBC 3.85 L (4.1-5.4) x10^6/uL Hgb 11.9 L (12.0-16.0) g/dL Hct 36.3 (35-47) % MCV 94.3 (78-100) fL MCH 30.9 (26-32) pg MCHC 32.8 (32-36) g/dL RDW 12.7 (11.5-14.0) % Plt Count 307 (150-450) x10^3/uL MPV 9.3 (7.5-11.0) fL Gran % 56.4 (36.0-66.0) % Immature Gran % (Auto) 0.2 (0.00-0.4) % Nucleat RBC Rel Count 0.0 (0.00-0.1) % Eos # (Auto) 0.13 (0-0.5) x10^3/uL Immature Gran # (Auto) 0.01 (0.00-0.03) x10^3u/L Absolute Lymphs (auto) 1.56 (1.0-4.6) x10^3/uL Absolute Monos (auto) 0.31 (0.0-1.3) x10^3/uL Absolute Nucleated RBC 0.00 (0.00-0.01) x10^3u/L Lymphocytes % 33.5 (24.0-44.0) % Monocytes % 6.7 (0.0-12.0) % Eosinophils % 2.8 (0.00-5.0) % Basophils % 0.4 (0.0-0.4) % Absolute Granulocytes 2.63 (1.4-6.9) x10^3/uL Basophils # 0.02 (0-0.4) x10^3/uL Sodium 139 (137-145) mmol/L Potassium 3.8 (3.5-5.1) mmol/L Chloride 109 H (98-107) mmol/L Carbon Dioxide 22 (22-30) mmol/L Anion Gap 11.6 (5-15) MEQ/L BUN 5 L (7-17) mg/dL Creatinine 0.84 (0.52-1.04) mg/dL Estimated GFR > 60.0 ML/MIN Glucose 89 (74-106) mg/dL Calcium 7.8 L (8.4-10.2) mg/dL - Radiology Exams Ordered Rad Exams-Entire Visit: Radiology Procedures Category Date Time Status CHEST 1 VIEW (PORTABLE) Routine Exams 05/23/22 16:15 Completed CHEST 1 VIEW (PORTABLE) Routine Exams 05/24/22 07:00 Completed CHEST 1 VIEW (PORTABLE) Routine Exams 05/25/22 07:00 Completed - Procedures and Test Procedures and Tests throughout Hospitalization: Therapy Orders & Screens 05/23/22 18:30 Oxygen Nasal Cannula 2 lpm Comment: Diagnosis: aspiration Discharge Exam General Appearance: no apparent distress Neurologic Exam: alert, oriented x 3 Respiratory Exam: normal breath sounds, lungs clear, No respiratory distress Cardiovascular Exam: regular rate/rhythm, normal heart sounds Gastrointestinal/Abdomen Exam: soft, No tenderness, No mass Extremity Exam: normal inspection, normal range of motion Skin Exam: normal color, warm, dry Final Diagnosis/Problem List - Final Discharge Diagnosis/Problem (1) Aspiration into respiratory tract Current Visit: Yes Status: Acute Assessment & Plan: home on po clindamycin, advised if any fever, worsening cough, dyspnea etc needs to call Code(s): T17.908A - UNSP FB IN RESP TRACT, PART UNSP CAUSING OTH INJURY, INIT (2) Food impaction of esophagus Current Visit: Yes Status: Acute Assessment & Plan: soft diet, f/u with surgery Code(s): T18.128A - FOOD IN ESOPHAGUS CAUSING OTHER INJURY, INITIAL ENCOUNTER - Discharge Disposition: Home, Self-Care Condition: Stable Prescriptions: New clindamycin HCL [Clindamycin HCl] 300 mg PO TID #15 cap Albuterol Sulfate [Albuterol Sulfate Hfa] 2 puffs IH Q4-6HPRN PRN #1 units PRN Reason: Cough Continue Propranolol HCl 10 mg [Inderal 10 MG] 20 mg PO BID Pantoprazole Sodium [Protonix] 40 mg PO DAILY Cetirizine HCl [Zyrtec] 10 mg PO HS Losartan/Hydrochlorothiazide [Losartan-Hctz 100-25 mg Tab] 1 each PO DAILY Potassium Chloride Tab* [Klor Con] 20 meq PO DAILY Follow up with: PAULA MADERA [COURTESY STAFF] - ZEB SCHULER NP [Primary Care Provider] -
== END 2022-05-25 10:10 | disposition home or self-care (01) ==
LOC: ED 14:17 → MED SURG 16:55
PROVIDERS: ADMIT Family Medicine; ATTEND Family Medicine
DX: T17.908A Unspecified foreign body in respiratory tract, part unspecified causing other injury, initial encounter (principal); T18.128A Food in esophagus causing other injury, initial encounter; I10 Essential (primary) hypertension; R11.10 Vomiting, unspecified; Z79.899 Other long term (current) drug therapy; Z20.828 Contact with and (suspected) exposure to other viral communicable diseases
CPT/HCPCS: 36415; 71045; 80048; 80053; 81025; 85025; 94640; 94760; 96374; 99140; 99282; G0378; J0330; J1100; J1610; J2250; J2370; J2405; J2704; J3010; A9270-GY

== ENCOUNTER 2024-05-23 13:35 | Emergency (ER) | payer OTHER ==
[2024-05-23 13:54] VITALS: TEMP 96.3
--- NOTE | 2024-05-23 14:13 | ERPHSYRPT ---
- History of Present Illness Time Seen by Provider: 05/23/24 13:36 Historian: patient Exam Limitations: no limitations Patient Subjective Stated Complaint: Chest pain Triage Nursing Assessment: Patient ambulated back to ED and transferred self to bed. Patient A+O X 3. Patient's skin pink, warm and dry. Patient complains of chest pain on and off this past week, but today her pain is more consistant intermittent sharp pain to left chest /10. Patient does complains of nausea. Lungs noted to be clear a/p miguel. Patient states she has been having increased PVCS. Physician History: 49-year-old female with history of hypertension, hyperlipidemia presented to the ER with intermittent substernal/left-sided chest pain for almost 1 week with progressive worsening lately. Patient reports mild intensity dull aching pain, nonradiating, no significant aggravating or relieving factors. Denies associated palpitations or shortness of breath. No history of coronary artery disease. No cardiac workup done in the recent past Aspirin Treatment Today: no aspirin today Allergies/Adverse Reactions: amoxicillin Allergy (Verified 05/23/24 13:45) Hives sulfamethoxazole [From Bactrim] Allergy (Verified 05/23/24 13:45) Hives trimethoprim [From Bactrim] Allergy (Verified 05/23/24 13:45) Hives egg Adverse Reaction (Intermediate, Verified 05/23/24 13:45) sinus infection Home Medications: Cetirizine HCl [Zyrtec] 10 mg PO HS 12/22/17 [History] Pantoprazole Sodium [Protonix] 40 mg PO DAILY 12/22/17 [History] Propranolol HCl 10 mg [Inderal 10 MG] 20 mg PO BID 12/22/17 [History] Losartan/Hydrochlorothiazide [Losartan-Hctz 100-25 mg Tab] 1 each PO DAILY 05/23/22 [History] Potassium Chloride Tab* [Klor Con] 20 meq PO DAILY 05/23/22 [History] Rosuvastatin Calcium 1 tab PO HS 05/23/24 [History] Hx Tetanus, Diphtheria Vaccination/Date Given: No Hx Influenza Vaccination/Date Given: Yes Hx Pneumococcal Vaccination/Date Given: No Immunizations Up to Date: Yes Travel Risk - International Travel Have you traveled outside of the country in past 3 weeks: No - Emerging Infectious Disease Are you exhibiting symptoms associated with any current EIDs: No - Review of Systems Constitutional: No Symptoms Ears, Nose, & Throat: No Symptoms Respiratory: No Symptoms Cardiac: Chest Pain Abdominal/Gastrointestinal: No Symptoms Genitourinary Symptoms: No Symptoms Musculoskeletal: No Symptoms Skin: No Symptoms Neurological: No Symptoms Endocrine: No Symptoms Hematologic/Lymphatic: No Symptoms - Past Medical History Pertinent Past Medical History: Yes Neurological History: Migraines ENT History: No Pertinent History Cardiac History: High Cholesterol, Hypertension Respiratory History: No Pertinent History Endocrine Medical History: No Pertinent History Musculoskeletal History: No Pertinent History GI Medical History: GERD History: No Pertinent History Psycho-Social History: No Pertinent History Female Reproductive Disorders: No Pertinent History - Past Surgical History Past Surgical History: Yes Neuro Surgical History: No Pertinent History Cardiac: No Pertinent History Respiratory: No Pertinent History Gastrointestinal: Cholecystectomy Genitourinary: No Pertinent History Musculoskeletal: No Pertinent History Female Surgical History: Tubal Ligation, Other Other Surgical History: lt tube and ovary removed, uterine ablation - Female History Hx Last Menstrual Period: ablation Hx Now: No - Social History Smoking Status: Never smoker Exposure to second hand smoke: No Drug Use: none - Social Determinants of Health Will the patient participate in the screening: Yes Do you worry about a steady place to live?: No Do you have any problems with any of the following?: No known problems In the past 12 months,have you had to go without utilities?: No Transportation Issues: No Has anyone in your support network made you feel unsafe?: No Have you or anyone in your house had to go w/o enough food: No - Nursing Vital Signs Nursing Vital Signs: Initial Vital Signs Pulse Rate 58 L 05/23/24 13:40 Respiratory Rate 15 05/23/24 13:40 Blood Pressure 159/81 05/23/24 13:40 O2 Sat by Pulse Oximetry 98 05/23/24 13:40 Pain Scale Pain Intensity 0 - Physical Exam General Appearance: no apparent distress, alert Eye Exam: PERRL/EOMI Ears, Nose, Throat Exam: normal ENT inspection Neck Exam: normal inspection, full range of motion Respiratory Exam: normal breath sounds, lungs clear Cardiovascular Exam: regular rate/rhythm, normal heart sounds Gastrointestinal/Abdomen Exam: soft, normal bowel sounds, No tenderness Back Exam: normal inspection, normal range of motion Extremity Exam: normal inspection, normal range of motion Neurologic Exam: alert, oriented x 3, cooperative Skin Exam: normal color SpO2 Interpretation: normal SpO2: 100 O2 Delivery: Room Air - Course EKG Interpreted by Me: RATE (60), Sinus Rhythm, NORMAL AXIS, NORMAL INTERVALS, Other (Unspecific T wave change) Ordered Tests: Active Orders 24 hr Category Date Time Status Motor Mechanic STAT Care 05/23/24 14:09 Completed EKG-ER Only STAT Care 05/23/24 14:08 Completed IV Insertion STAT Care 05/23/24 14:08 Completed CHEST 1 VIEW (PORTABLE) Stat Exams 05/23/24 14:40 Completed CBC W DIFF Stat Lab 05/23/24 Completed CMP Stat Lab 05/23/24 Completed D-DIMER QUANTITATIVE Stat Lab 05/23/24 Completed NT PRO BNPII Stat Lab 05/23/24 Completed TROPONIN Q4H Lab 05/23/24 Completed TROPONIN Q4H Lab 05/23/24 16:50 Completed Medication Summary Discontinued Medications Generic Name Dose Route Start Last Admin Trade Name Freq PRN Reason Stop Dose Admin Aspirin 324 mg 05/23/24 14:08 05/23/24 14:18 Aspirin 81 Mg Tab.Chew PO 05/23/24 14:09 324 mg STAT ONE Administration Aspirin Confirm 05/23/24 14:18 Aspirin 81 Mg Tab.Chew Administered 05/23/24 14:19 Dose 324 mg .ROUTE .STK-MED ONE Doxycycline Hyclate 100 mg 05/23/24 17:39 05/23/24 17:50 Doxycycline Hyclate 100 Mg Tablet PO 05/23/24 17:40 100 mg STAT ONE Administration Doxycycline Hyclate Confirm 05/23/24 17:50 Doxycycline Hyclate 100 Mg Tablet Administered 05/23/24 17:51 Dose 100 mg .ROUTE .STK-MED ONE Lab/Rad Data: Laboratory Result Diagrams 05/23/24 Unknown 05/23/24 Unknown Laboratory Results 05/23/24 05/23/24 05/23/24 Range/Units Unknown Unknown Unknown WBC (3.98-10.04) x10^3/uL RBC (3.93-5.22) x10^6/uL Hgb (11.2-15.7) g/dL Hct (34.1-44.9) % MCV (79.4-94.8) fL MCH (25.6-32.2) pg MCHC (32.2-35.5) g/dL RDW (11.7-14.4) % Plt Count (182-369) x10^3/uL MPV (9.4-12.3) fL Gran % (34.0-71.1) % Immature Gran % (Auto) (0.001-0.429) % Nucleat RBC Rel Count (0.00-0.2) % Eos # (Auto) (0.04-0.36) x10^3/uL Immature Gran # (Auto) (0.001-0.031) x10^3u/L Absolute Lymphs (auto) (1.18-3.74) x10^3/uL Absolute Monos (auto) (0.24-0.86) x10^3/uL Absolute Nucleated RBC (0.00-0.012) x10^3u/L Lymphocytes % (19.3-51.7) % Monocytes % (4.7-12.5) % Eosinophils % (0.7-5.8) % Basophils % (0.1-1.2) % Absolute Granulocytes (1.56-6.13) x10^3/uL Basophils # (0.01-0.08) x10^3/uL D-Dimer < 0.19 (0.0-0.50) mg/L Sodium 141 (135-145) mmol/L Potassium 3.6 (3.5-5.1) mmol/L Chloride 101 (98-107) mmol/L Carbon Dioxide 28 (22-30) mmol/L Anion Gap 16.3 H (5-15) MEQ/L BUN 14 (7-17) mg/dL Creatinine 0.81 (0.52-1.04) mg/dL Estimated GFR 90.1 ML/MIN Glucose 95 (74-106) mg/dL Calcium 10.2 (8.4-10.2) mg/dL Total Bilirubin 0.70 (0.2-1.3) mg/dL AST 34 (14-36) U/L ALT 34 (0-35) U/L Alkaline Phosphatase 60 (38-126) U/L Troponin I < 0.012 (0.000-0.033) ng/mL NT-Pro-B Natriuret Pep 148 (<300) pg/mL Serum Total Protein 7.7 (6.3-8.2) g/dL Albumin 5.0 (3.5-5.0) g/dL 05/23/24 05/23/24 Range/Units Unknown 16:50 WBC 8.2 (3.98-10.04) x10^3/uL RBC 4.83 (3.93-5.22) x10^6/uL Hgb 15.0 (11.2-15.7) g/dL Hct 44.7 (34.1-44.9) % MCV 92.5 (79.4-94.8) fL MCH 31.1 (25.6-32.2) pg MCHC 33.6 (32.2-35.5) g/dL RDW 12.1 (11.7-14.4) % Plt Count 413 H (182-369) x10^3/uL MPV 9.7 (9.4-12.3) fL Gran % 62.7 (34.0-71.1) % Immature Gran % (Auto) 0.2 (0.001-0.429) % Nucleat RBC Rel Count 0.0 (0.00-0.2) % Eos # (Auto) 0.11 (0.04-0.36) x10^3/uL Immature Gran # (Auto) 0.02 (0.001-0.031) x10^3u/L Absolute Lymphs (auto) 2.23 (1.18-3.74) x10^3/uL Absolute Monos (auto) 0.66 (0.24-0.86) x10^3/uL Absolute Nucleated RBC 0.00 (0.00-0.012) x10^3u/L Lymphocytes % 27.3 (19.3-51.7) % Monocytes % 8.1 (4.7-12.5) % Eosinophils % 1.3 (0.7-5.8) % Basophils % 0.4 (0.1-1.2) % Absolute Granulocytes 5.13 (1.56-6.13) x10^3/uL Basophils # 0.03 (0.01-0.08) x10^3/uL D-Dimer (0.0-0.50) mg/L Sodium (135-145) mmol/L Potassium (3.5-5.1) mmol/L Chloride (98-107) mmol/L Carbon Dioxide (22-30) mmol/L Anion Gap (5-15) MEQ/L BUN (7-17) mg/dL Creatinine (0.52-1.04) mg/dL Estimated GFR ML/MIN Glucose (74-106) mg/dL Calcium (8.4-10.2) mg/dL Total Bilirubin (0.2-1.3) mg/dL AST (14-36) U/L ALT (0-35) U/L Alkaline Phosphatase (38-126) U/L Troponin I < 0.012 (0.000-0.033) ng/mL NT-Pro-B Natriuret Pep (<300) pg/mL Serum Total Protein (6.3-8.2) g/dL Albumin (3.5-5.0) g/dL - Progress Progress: improved, re-examined Air Movement: good Progress Note: 05/23/24 17:52 49-year-old is evaluated in the ER for substernal/left-sided chest discomfort off-and-on for 1 week. EKG is sinus rhythm with no acute ischemic changes. She has negative troponins x 2. Normal white count, unremarkable chemistries and negative D-dimers. Chest x-ray showed questionable infiltrate left side in the area where patient is complaining of pain. I will start her on doxycycline and will give her inhaler to go home and outpatient follow-up recommended. Patient is low heart score and with 2 negative troponin and pain going on for quite some time I do not think patient needs to be observed in the hospital, patient is established with cardiology Dr. Noel which she is advised to continue and call for appointment early next week. Discussed signs symptoms of worsening needing return to ER which she seems understanding. Stable for discharge. Blood Culture(s) Obtained: No Antibiotics given: No Counseled pt/family regarding: lab results, diagnosis, need for follow-up, rad results Medical Desision Making - Independent Historian Additional History obtained from: Spouse - Diagnostic Testing Diagnostic test were ordered, analyzed, and reviewed by me: Yes Radiological Interpretation: Interpreted by me, Reviewed by me, Teleradiologist Report - Risk of complications The pt has a mod risk of morbidity or mortality based on: Need for prescription drug management - Departure Departure Disposition: Home Clinical Impression: Atypical chest pain, Pneumonia Condition: Stable Critical Care Time: No Referrals: ZEB SCHULER, IVY [Primary Care Provider] - Follow up with PCP 1 day MAGO NOEL [CONSULTING PHYSICIAN] - Follow up/PCP as directed (Call for appointment for reevaluation early next week) Instructions: Pneumonia, Adult (DC), Angina (DC) Additional Instructions: Take Tylenol as needed. Follow-up with primary care for reevaluation. Return to ER for any worsening. Prescriptions: Doxycycline Hyclate 100 mg [Vibramycin 100 MG] 100 mg PO BID #20 tab
[2024-05-23 14:16] LABS: Absolute Neutrophil Ct (ANC) 5.13 x10^3/uL (1.56-6.13); BASOPHIL % 0.4 % (0.1-1.2); Basophil (Absolute #) 0.03 x10^3/uL (0.01-0.08); Eosinophil % 1.3 % (0.7-5.8); Eosinophil (Absolute #) 0.11 x10^3/uL (0.04-0.36); Hematocrit 44.7 % (34.1-44.9); IMMATURE GRAN # 0.02 x10^3u/L (0.001-0.031); IMMATURE GRAN % 0.2 % (0.001-0.429); Lymphocyte (Absolute #) 2.23 x10^3/uL (1.18-3.74); Lymphocytes % 27.3 % (19.3-51.7); Mean Cell Volume 92.5 fL (79.4-94.8); Mean Corpuscular Hemoglobin 31.1 pg (25.6-32.2); Mean Corpuscular Hgb Concent. 33.6 g/dL (32.2-35.5); Mean Platelet Volume 9.7 fL (9.4-12.3); Monocyte (Absolute #) 0.66 x10^3/uL (0.24-0.86); Monocytes % 8.1 % (4.7-12.5); Neutrophil % 62.7 % (34.0-71.1); Platelet Count 413 x10^3/uL (182-369); Red Blood Count 4.83 x10^6/uL (3.93-5.22); Red Cell Distribution Width 12.1 % (11.7-14.4); White Blood Count 8.2 x10^3/uL (3.98-10.04)
[2024-05-23] MEDS: BABY ASPIRIN 81 MG CHEW PO ONE (14:18)
[2024-05-23] MEDS ORDERED: BABY ASPIRIN 81 MG CHEW ONE (14:18)
[2024-05-23 14:22] LABS: ANION GAP 16.3 MEQ/L (5-15); BILIRUBIN,TOTAL 0.7 mg/dL (0.2-1.3); Calcium 10.2 mg/dL (8.4-10.2); Creatinine 1 0.81 mg/dL (0.52-1.04); EST GLOMERULAR FILTRATION RATE 90.1 ML/MIN; Potassium 3.6 mmol/L (3.5-5.1); Total Protein 7.7 g/dL (6.3-8.2)
--- NOTE | 2024-05-23 15:50 | XRAY ---
CLINICAL HISTORY: cp COMPARISON: None. TECHNIQUE: X ray of the chest, AP view. FINDINGS: Radiographic examination of the chest demonstrates some opacities in the left lower zone which can be due to overlapping soft tissues but the possibility of some subtle infiltrates can not be excluded. Normal configuration of the mediastinum. The emily are normal in size and position. The cardiac size is normal. The bony thorax is unremarkable. The right costophrenic and cardiophrenic angles are clear. IMPRESSION: Some opacities in the left lower zone which can be due to overlapping soft tissues but the possibility of some subtle alveolar infiltrates can not be excluded. No consolidation or collapse is seen on either side. Clinical correlation and follow-up are advised. Electronically Signed by: Mckenzie Diaz MD. (05/23/2024 15:47:20 EST)
[2024-05-23] MEDS ORDERED: Vibramycin 100 MG ONE (17:50)
[2024-05-23] MEDS: Vibramycin 100 MG PO ONE (17:50)
[2024-05-23 18:33] VITALS: BP 110/68; PULSE 68; RESP 18
[2024-05-24 00:26] VITALS: O2SAT 100
== END 2024-05-23 18:34 | disposition home or self-care (01) ==
LOC: ED 13:35
DX: R07.89 Other chest pain (principal); J18.9 Pneumonia, unspecified organism; I10 Essential (primary) hypertension; E78.5 Hyperlipidemia, unspecified; Z79.899 Other long term (current) drug therapy
CPT/HCPCS: 36415; 71045; 80053; 83880; 84484; 85025; 85379; 93005; 93041; 99284; 99285; A9270-GY

== ENCOUNTER 2024-12-31 06:05 | Day surgery (SDC) | payer OTHER ==
[2024-12-31 06:18] LABS: HCG URINE TEST NEGATIVE (NEGATIVE)
[2024-12-31] MEDS ORDERED: PITRESSIN 20 UNITS ONE (06:19)
[2024-12-31] MEDS: TYLENOL EXTRA STRENGTH 500 MG PO ONE (06:25)
[2024-12-31] MEDS: Lactated Ringers 1,000 ML IV SCH (06:25)
[2024-12-31] MEDS: CLINDAMYCIN-D5W 900 MG/50 ML*** 900 MG/50 ML BAG IV ONE (06:25)
[2024-12-31] MEDS: NEURONTIN PO ONE (06:25)
[2024-12-31] MEDS: Decadron 4 MG PO ONE (06:26)
[2024-12-31] MEDS: celeBREX 100 MG PO ONE (06:26)
[2024-12-31 06:37] VITALS: RESP 16; TEMP 96.4
[2024-12-31 06:45] LABS: Hematocrit 42.0 % (34.1-44.9); Hemoglobin 13.9 g/dL (11.2-15.7); Mean Corpuscular Hemoglobin 30.5 pg (25.6-32.2); Mean Corpuscular Hgb Concent. 33.1 g/dL (32.2-35.5); Platelet Count 250 x10^3/uL (182-369); Red Blood Count 4.56 x10^6/uL (3.93-5.22); White Blood Count 6.2 x10^3/uL (3.98-10.04)
[2024-12-31 06:58] LABS: Calcium 9.6 mg/dL (8.4-10.2); Carbon Dioxide 23.0 mmol/L (22-30); Creatinine 1 0.98 mg/dL (0.52-1.04); EST GLOMERULAR FILTRATION RATE 71.6 ML/MIN; Glucose 99.0 mg/dL (74-106); Potassium 3.3 mmol/L (3.5-5.1); SGOT/AST 33.0 U/L (14-36); SGPT/ALT 31.0 U/L (0-35); Total Protein 7.2 g/dL (6.3-8.2)
[2024-12-31] MEDS ORDERED: SUBLIMAZE 100 MCG/2 ML ONE (07:45)
[2024-12-31] MEDS ORDERED: ROCURONIUM BROMIDE IV ONE (07:45)
[2024-12-31] MEDS ORDERED: propofoL IV ONE (07:45)
[2024-12-31] MEDS ORDERED: Xylocaine-Mpf 2% 5 Ml Vial ONE (07:45)
[2024-12-31] MEDS ORDERED: BRIDION 200MG/2ML IV ONE (07:45)
[2024-12-31] MEDS ORDERED: TORAdol 30 mg Injection ONE (07:45)
[2024-12-31] MEDS ORDERED: Zofran 4 MG/2 ML VIAL ONE (07:45)
[2024-12-31] MEDS ORDERED: Lactated Ringers 1,000 ML IV ONE (08:12)
[2024-12-31 09:46] VITALS: BP 101/51; PULSE 66; O2SAT 100
[2024-12-31 14:36] LABS: Glucose, Urine Negative (Negative); Protein,Urine Dip Negative (Negative); WBC 0-2 /HPF (0-5)
--- NOTE | 2025-01-02 11:01 | OP ---
SURGERY DATE/TIME: 12/31/2024 [id number] PREOPERATIVE DIAGNOSIS: Stress incontinence. POSTOPERATIVE DIAGNOSIS: Stress incontinence. PROCEDURE: Placement of Altis bladder sling and cystoscopy. SURGEON: Panfilo Delgadillo DO ROVING CAN TENDER: Nahed Cardenas. ANESTHESIA: General. ESTIMATED BLOOD LOSS: Minimal. COMPLICATIONS: None. INDICATIONS: The risks, benefits, indications, and alternatives of the procedure were reviewed with the patient prior to the procedure. The patient understood the risks of infection, bleeding, bowel injury, bladder injury, ureteral injury, pelvic infection, thromboembolic disorder, possible continued incontinence, stress incontinence, urge incontinence, dyspareunia, and groin discomfort that can be associated with this procedure as well as mesh erosion and mesh extrusion that can be associated with this procedure, however, desires to have this procedure as a possible form to alleviate her current symptoms. DESCRIPTION OF PROCEDURE AND FINDINGS: From this point, patient was taken to the operating room, given general sedation and placed in dorsal lithotomy position, prepped and draped in the usual sterile fashion. A weighted speculum was then placed in the patient's vagina, and at this point, approximately 30 mL of diluted vasopressin was injected 1 cm below the urethral meatus where it was injected bilaterally in the vaginal sulcus as well as in the midline just below the urethral meatus. A vertical vaginal incision of approximately 1.5 cm was made in the midline, 1.5 cm below the urethral meatus. The periurethral space was dissected bilaterally using sharp and blunt dissection to create a tract toward the obturator internus fascia on each side. The Altis Single Incision Sling System was then prepared. The static anchor was then introduced first on the surgeon's right side using the curved helical introducer and deployed into the obturator internus fascia. The dynamic anchor was then deployed on the left side in a similar fashion. Both anchors were deployed with tactile and audible confirmation. The sling was then adjusted to lie flat beneath the midurethra without tension. At this point, the cystoscope was then introduced into the bladder to evaluate any injury, and both ureteral orifices were visualized with normal efflux. No evidence of bladder or ureteral injury was seen. From this point, the incision was closed with a continuous 2-0 Vicryl suture, and hemostasis was obtained. Patient was then taken out of the dorsal lithotomy position, was taken out of anesthesia, was then taken to the recovery room in stable condition. All instruments and laps were accounted for x2.
== END 2024-12-31 10:11 | disposition home or self-care (01) ==
LOC: SDC 06:05
PROVIDERS: ATTEND Obstetrics & Gynecology
DX: N39.3 Stress incontinence (female) (male) (principal)